=== PATIENT | female | born 1995 | race Caucasian/White ===

== ENCOUNTER 2016-09-06 18:23 | Emergency (ER) | payer OTHER ==
[~2016-09-06] VITALS: Ht 154.9 cm; Wt 54.4 kg
[2016-09-06 18:24] VITALS: BP 120/50
[2016-09-06] MEDS ORDERED: TARI1TAB PO (18:30)
[2016-09-06] MEDS ORDERED: MOTR200T44 PO (19:02)
--- NOTE | 2016-09-06 19:37 | REP ---
Right ankle four views : There is no fracture or dislocation. Mineralization and joint spaces are normal. There are no calcifications or foreign bodies. Impression: Negative right ankle . Signed by Vitor Chaves MD 09/06/2016 07:29 P
== END 2016-09-06 19:32 | disposition home or self-care (01) ==
LOC: M ED 19:29
DX: S93.401A Sprain of unspecified ligament of right ankle, initial encounter (principal); X50.3XXA Overexertion from repetitive movements, initial encounter; Y92.89 Other specified places as the place of occurrence of the external cause; Y93.02 Activity, running; Y99.9 Unspecified external cause status

== ENCOUNTER 2017-03-06 06:20 | Emergency (ER) | payer OTHER ==
[~2017-03-06] VITALS: Ht 154.9 cm; Wt 54.5 kg
[~2017-03-06 06:20] MED LIST: MOTR200T44 PO; TARI1TAB PO
[2017-03-06] MEDS ORDERED: KETOROLAC 60 MG/2 ML VIAL (J1885) IM ONE (09:00)
[2017-03-06] MEDS ORDERED: CYCL10TA PO (09:46)
[2017-03-06 09:55] VITALS: BP 100/60
== END 2017-03-06 10:01 | disposition home or self-care (01) ==
LOC: M ED 06:20
DX: M43.6 Torticollis (principal)
CPT/HCPCS: 96372; 99283; J1885